=== PATIENT | male | born 1980 | race Caucasian/White ===

== ENCOUNTER 2017-12-03 23:52 | Emergency (ER) | payer OTHER ==
[~2017-12-03] VITALS: Ht 180.3 cm; Wt 124.3 kg
[~2017-12-03 23:52] MED LIST: BIAXIN500 MG PO; CIPROFLOXACIN500 MG PO; CORDROL20 MG PO; MEDROL DOSEPAK4 MG PO; NKHM; PROAIR HFA0.09 MG/AC IH; PROVENTIL0.09 MG/AC IH; ROBITUSSIN-AC 160 ML PO; TOPROL PO; VIBRAMYCIN100 MG PO
[2017-12-03] MEDS ORDERED: BACLOFEN20 M1 PO (23:56)
[2017-12-03] MEDS ORDERED: OXYBUTYNIN5 MG PO (23:56)
[2017-12-04 01:06] LABS: BASO # 0.1 10*3/uL (0.0-0.1); BASO % 0.5 % (0.0-1.0); EOS # 0.3 10*3/uL (0.0-0.4); EOS % 2.5 % (1.0-4.0); HEMATOCRIT 45.7 % (42.0-52.0); HEMOGLOBIN 15.4 g/dl (14.0-18.0); LYMPH % 16.9 % (27.0-41.0); MEAN CELL VOLUME 83.7 fl (80.0-94.0); MEAN CORPUSCULAR HGB 28.2 pg (27.0-31.0); MEAN CORPUSCULAR HGB CONC 33.7 g/dl (33.0-37.0); MONO # 0.9 10*3/uL (0.1-1.0); MONO % 7.1 % (3.0-9.0); NEUT # 8.8 10*3/uL (2.3-7.9); NEUT % 72.8 % (47.0-73.0); PLATELET COUNT AUTOMATED 320 10*3/uL (130-400); RED BLOOD COUNT 5.46 10*6/uL (4.50-5.90); RED CELL DISTRI WIDTH 12.8 % (0-14.5)
[2017-12-04 01:23] LABS: ALBUMIN 3.6 gm/dl (3.1-4.5); BUN 10 mg/dl (7-24); CHLORIDE 104 mmol/L (98-107); CREATININE 0.88 mg/dL (0.70-1.30); POTASSIUM 3.2 mmol/L (3.5-5.1); SGOT/AST 19 IU/L (3-35); SGPT/ALT 39 U/L (12-78); SODIUM 137 mmol/L (136-145)
[2017-12-04 01:25] LABS: ALKALINE PHOSPHATASE 72 U/L (45-117); TOTAL PROTEIN 7.4 gm/dL (6.4-8.2)
== END 2017-12-04 01:51 | disposition home or self-care (01) ==
LOC: ED 23:52
PROVIDERS: Emergency Medicine Emergency Medical Services
DX: L03.115 Cellulitis of right lower limb (principal); Z88.2 Allergy status to sulfonamides

== ENCOUNTER → 2017-12-04 | Outpatient (CLI) | payer OTHER ==
[~2017-12-04] MED LIST changes: +BACLOFEN20 M1 PO; +OXYBUTYNIN5 MG PO
== END | disposition home or self-care (01) ==
LOC: US 08:26
DX: L03.115 Cellulitis of right lower limb (principal)

== ENCOUNTER 2020-08-27 16:20 | Emergency (ER) | payer OTHER ==
[~2020-08-27] VITALS: Ht 434 cm; Wt 129.7 kg
[~2020-08-27 16:20] MED LIST changes: +AMOXICILLIN500 M2 PO; +LISINOPRIL20 MG PO; +PROAIR HFA8.5 GM INH
[2020-08-27 18:44] LABS: BASO % 0.3 % (0.0-1.0); EOS % 0.4 % (1.0-4.0); HEMATOCRIT 48.1 % (42.0-52.0); LYMPH % 13.8 % (27.0-41.0); MEAN CELL VOLUME 86.8 fl (80.0-94.0); MEAN CORPUSCULAR HGB CONC 32.2 g/dl (33.0-37.0); MEAN PLATELET VOLUME 9.5 fl (9.6-12.3); MONO # 0.9 10*3/uL (0.1-1.0); NEUT # 5.2 10*3/uL (2.3-7.9); NEUT % 73.2 % (47.0-73.0); PLATELET COUNT AUTOMATED 313 10*3/uL (130-400); RED BLOOD COUNT 5.54 10*6/uL (4.50-5.90); RED CELL DISTRI WIDTH 12.9 % (0-14.5); WHITE BLOOD COUNT 7.2 10*3/uL (4.8-10.8)
[2020-08-27 18:51] LABS: BILIRUBIN Negative (Negative); BLOOD Negative (Negative); CLARITY Clear (Clear); COLOR Dark Yellow (Yellow); GLUCOSE Negative (Negative); KETONE 2+ (Negative); LEUKO ESTERASE Trace (Negative); NITRITE Negative (Negative); SPECIFIC GRAVITY 1.025 (1.001-1.030)
[2020-08-27 18:53] LABS: PH 8.5 (4.5-8.0)
[2020-08-27 19:01] LABS: ALBUMIN 3.8 gm/dl (3.1-4.5); ALKALINE PHOSPHATASE 69 U/L (45-117); BUN 9 mg/dl (7-24); CHLORIDE 105 mmol/L (98-107); CREATININE 1.05 mg/dL (0.70-1.30); POTASSIUM 3.9 mmol/L (3.5-5.1); SGOT/AST 27 IU/L (3-35); SGPT/ALT 49 U/L (12-78); SODIUM 140 mmol/L (136-145); TOTAL PROTEIN 7.7 gm/dL (6.4-8.2)
[2020-08-27 19:03] LABS: BACTERIA TRACE; MUCOUS TRACE
== END 2020-08-27 22:00 | disposition home or self-care (01) ==
LOC: ED 16:20
PROVIDERS: Nurse Practitioner Family
DX: R42 Dizziness and giddiness (principal); Z20.828 Contact with and (suspected) exposure to other viral communicable diseases; Z88.2 Allergy status to sulfonamides; Z79.899 Other long term (current) drug therapy

== ENCOUNTER 2024-04-16 22:53 | Inpatient (IN) | payer OTHER ==
[~2024-04-16] VITALS: Ht 180.3 cm; Wt 135.2 kg
[2024-04-16 23:01] VITALS: BP 133/63
[2024-04-16] MEDS ORDERED: METFORMIN XR500 MG PO (23:03)
[2024-04-16] MEDS ORDERED: KEFLEX 500 MG E2 CAP PO (23:04)
[2024-04-16] MEDS ORDERED: ATORVASTATIN CA10 M1 PO (23:04)
[2024-04-16] MEDS ORDERED: CARBAMAZEPINE100 M1 PO (23:05)
[2024-04-16 23:32] LABS: BASO # 0.1 10*3/uL (0.0-0.1); BASO % 0.5 % (0.0-1.0); EOS # 0.4 10*3/uL (0.0-0.4); EOS % 3.1 % (1.0-4.0); LYMPH # 3.2 10*3/uL (1.3-4.4); LYMPH % 24.7 % (27.0-41.0); MEAN CELL VOLUME 86.6 fl (80.0-94.0); MEAN CORPUSCULAR HGB 27.9 pg (27.0-31.0); MEAN CORPUSCULAR HGB CONC 32.3 g/dl (33.0-37.0); MEAN PLATELET VOLUME 9.7 fl (9.6-12.3); MONO # 1.1 10*3/uL (0.1-1.0); NEUT # 8.3 10*3/uL (2.3-7.9); NEUT % 63.3 % (47.0-73.0); PLATELET COUNT AUTOMATED 421 10*3/uL (130-400); RED BLOOD COUNT 4.62 10*6/uL (4.50-5.90); RED CELL DISTRI WIDTH 13.5 % (0-14.5); WHITE BLOOD COUNT 13.1 10*3/uL (4.8-10.8)
[2024-04-16 23:55] LABS: ALKALINE PHOSPHATASE 68 U/L (46-116); BUN 14 mg/dl (9-23); CHLORIDE 111 mmol/L (98-107); POTASSIUM 3.6 mmol/L (3.4-5.1); SGPT/ALT 20 U/L (5-49); TOTAL PROTEIN 6.3 gm/dL (6.0-8.0)
[2024-04-17] MEDS ORDERED: Vancomycin Hydrochloride 250 ML IV ONE ×2 (00:30→02:10)
[2024-04-17] MEDS ORDERED: Piperacillin Sodium/Tazobact 50 ML IV ONE (00:30)
[2024-04-17] MEDS ORDERED: SODIUM CHLORIDE 0.9% 1,000 ML IV SCH (00:50)
[2024-04-17] MEDS ORDERED: Ondansetron Hydrochloride 4 MG/2 ML VIAL IV PRN (01:00)
[2024-04-17] MEDS ORDERED: ACETAMINOPHEN 325 MG TAB PO PRN (01:00)
[2024-04-17 05:44] LABS: BUN 16 mg/dl (9-23); CHLORIDE 111 mmol/L (98-107); POTASSIUM 3.6 mmol/L (3.4-5.1)
[2024-04-17] MEDS ORDERED: Piperacillin Sodium/Tazobact 50 ML IV SCH (06:00)
[2024-04-17 06:26] LABS: BASO # 0.1 10*3/uL (0.0-0.1); BASO % 0.5 % (0.0-1.0); EOS # 0.4 10*3/uL (0.0-0.4); EOS % 3.1 % (1.0-4.0); HEMATOCRIT 37.8 % (42.0-52.0); LYMPH # 2.9 10*3/uL (1.3-4.4); LYMPH % 26.1 % (27.0-41.0); MEAN CELL VOLUME 88.9 fl (80.0-94.0); MEAN CORPUSCULAR HGB 27.8 pg (27.0-31.0); MEAN CORPUSCULAR HGB CONC 31.2 g/dl (33.0-37.0); MEAN PLATELET VOLUME 10.1 fl (9.6-12.3); MONO # 0.9 10*3/uL (0.1-1.0); NEUT % 61.9 % (47.0-73.0); PLATELET COUNT AUTOMATED 384 10*3/uL (130-400); RED BLOOD COUNT 4.25 10*6/uL (4.50-5.90); RED CELL DISTRI WIDTH 13.7 % (0-14.5); WHITE BLOOD COUNT 11.3 10*3/uL (4.8-10.8)
[2024-04-17] MEDS ORDERED: Enoxaparin Sodium 40 MG/0.4 ML SYR SC SCH (10:00)
[2024-04-17] MEDS ORDERED: VANCOMYCIN/WATER FOR INJ (PEG) 400 ML IV SCH (12:00)
[2024-04-17] MEDS ORDERED: IOHEXOL 300 MG/ML 100 ML VIAL IV ONE (12:20)
[2024-04-17 15:42] VITALS: BP 119/75
[2024-04-17 19:53] VITALS: BP 116/67
[2024-04-18 03:58] VITALS: BP 120/66
[2024-04-18 06:17] LABS: BASO # 0.1 10*3/uL (0.0-0.1); BASO % 0.5 % (0.0-1.0); EOS # 0.3 10*3/uL (0.0-0.4); EOS % 2.7 % (1.0-4.0); LYMPH # 2.3 10*3/uL (1.3-4.4); LYMPH % 19.8 % (27.0-41.0); MEAN CELL VOLUME 86.4 fl (80.0-94.0); MEAN CORPUSCULAR HGB 28.6 pg (27.0-31.0); MEAN CORPUSCULAR HGB CONC 33.2 g/dl (33.0-37.0); MEAN PLATELET VOLUME 9.6 fl (9.6-12.3); MONO # 0.8 10*3/uL (0.1-1.0); NEUT # 8.2 10*3/uL (2.3-7.9); NEUT % 69.6 % (47.0-73.0); PLATELET COUNT AUTOMATED 379 10*3/uL (130-400); RED CELL DISTRI WIDTH 13.6 % (0-14.5); WHITE BLOOD COUNT 11.7 10*3/uL (4.8-10.8)
[2024-04-18 06:51] LABS: BUN 9 mg/dl (9-23); CHLORIDE 106 mmol/L (98-107); POTASSIUM 4.1 mmol/L (3.4-5.1)
[2024-04-18 08:41] VITALS: BP 117/80
[2024-04-18] MEDS ORDERED: ASCORBIC ACID 500 MG TAB PO SCH (10:00)
[2024-04-18] MEDS ORDERED: Cholecalciferol 2,000 UNIT TABLET (50 MCG) PO SCH (10:00)
[2024-04-18] MEDS ORDERED: VANCOMYCIN/WATER FOR INJ (PEG) 350 ML IV SCH (14:00)
[2024-04-18 17:40] VITALS: BP 129/89
[2024-04-18 17:43] VITALS: BP 125/76
[2024-04-18 20:00] VITALS: BP 102/59
[2024-04-19] VITALS: BP 111/70
[2024-04-19 06:44] LABS: BASO # 0.1 10*3/uL (0.0-0.1); BASO % 0.6 % (0.0-1.0); EOS # 0.4 10*3/uL (0.0-0.4); EOS % 3.8 % (1.0-4.0); HEMATOCRIT 40.7 % (42.0-52.0); LYMPH # 2.6 10*3/uL (1.3-4.4); LYMPH % 23.7 % (27.0-41.0); MEAN CELL VOLUME 86.8 fl (80.0-94.0); MEAN CORPUSCULAR HGB 27.9 pg (27.0-31.0); MEAN CORPUSCULAR HGB CONC 32.2 g/dl (33.0-37.0); MEAN PLATELET VOLUME 9.5 fl (9.6-12.3); MONO # 0.8 10*3/uL (0.1-1.0); MONO % 7.6 % (3.0-9.0); NEUT # 6.9 10*3/uL (2.3-7.9); NEUT % 63.9 % (47.0-73.0); PLATELET COUNT AUTOMATED 434 10*3/uL (130-400); RED BLOOD COUNT 4.69 10*6/uL (4.50-5.90); RED CELL DISTRI WIDTH 13.8 % (0-14.5); WHITE BLOOD COUNT 10.8 10*3/uL (4.8-10.8)
[2024-04-19 06:47] LABS: BUN 9 mg/dl (9-23); CHLORIDE 106 mmol/L (98-107); POTASSIUM 4.3 mmol/L (3.4-5.1)
[2024-04-19 08:00] VITALS: BP 104/73
[2024-04-19] MEDS ORDERED: MUPIROCIN 15 GM TUBE T SCH (10:00)
[2024-04-19 12:00] VITALS: BP 116/55
[2024-04-19] MEDS ORDERED: FOAM BANDAGE 5X5 T ONE (14:57)
[2024-04-19 16:00] VITALS: BP 116/59
[2024-04-19] MEDS ORDERED: CEPHALEXIN500 M1 PO (19:14)
[2024-04-19] MEDS ORDERED: DALVANCE500 MG IV (19:14)
[2024-04-19 20:00] VITALS: BP 125/80
[2024-04-20] VITALS: BP 103/65
[2024-04-20 06:24] LABS: BUN 9 mg/dl (9-23); CHLORIDE 107 mmol/L (98-107); POTASSIUM 4.3 mmol/L (3.4-5.1)
[2024-04-20 06:26] LABS: BASO # 0.1 10*3/uL (0.0-0.1); BASO % 0.6 % (0.0-1.0); EOS # 0.5 10*3/uL (0.0-0.4); EOS % 4.2 % (1.0-4.0); HEMATOCRIT 40.8 % (42.0-52.0); LYMPH # 2.3 10*3/uL (1.3-4.4); LYMPH % 18.9 % (27.0-41.0); MEAN CELL VOLUME 86.1 fl (80.0-94.0); MEAN CORPUSCULAR HGB 27.8 pg (27.0-31.0); MEAN CORPUSCULAR HGB CONC 32.4 g/dl (33.0-37.0); MEAN PLATELET VOLUME 9.4 fl (9.6-12.3); MONO # 0.9 10*3/uL (0.1-1.0); MONO % 7.5 % (3.0-9.0); NEUT # 8.2 10*3/uL (2.3-7.9); NEUT % 68.1 % (47.0-73.0); PLATELET COUNT AUTOMATED 452 10*3/uL (130-400); RED BLOOD COUNT 4.74 10*6/uL (4.50-5.90); RED CELL DISTRI WIDTH 13.4 % (0-14.5)
[2024-04-20 08:00] VITALS: BP 122/75
[2024-04-20] MEDS ORDERED: FOAM BANDAGE 5X5 T ONE (11:38)
[2024-04-20] MEDS ORDERED: DALVANCE500 MG IV (11:44)
[2024-04-20] MEDS ORDERED: VITAMIN C500 M4 PO (11:44)
[2024-04-20] MEDS ORDERED: VITAMIN D350 MCG PO (11:44)
[2024-04-20 12:00] VITALS: BP 119/72
== END 2024-04-20 13:25 | disposition home or self-care (01) | DRG 872 ==
LOC: ED 22:53 → 4E 04-17 00:49 → EDHOLD 04-17 00:49 → 4E 04-17 00:49 → EDHOLD 04-17 01:08 → 4E 04-18 16:37
PROVIDERS: Internal Medicine; Student in an Organized Health Care Education/Training Program; ADMIT Family Medicine; ATTEND Family Medicine
DX: A41.9 Sepsis, unspecified organism (principal); L03.116 Cellulitis of left lower limb; D64.9 Anemia, unspecified; I10 Essential (primary) hypertension; D75.839 Thrombocytosis, unspecified; R73.9 Hyperglycemia, unspecified; E78.2 Mixed hyperlipidemia; G35 Multiple sclerosis; J45.20 Mild intermittent asthma, uncomplicated; Z88.2 Allergy status to sulfonamides; Z79.51 Long term (current) use of inhaled steroids; Z79.899 Other long term (current) drug therapy